=== PATIENT | female | born 1945 | race Caucasian/White ===

== ENCOUNTER 2020-09-18 12:16 | Outpatient (CLI) | payer MEDICARE ==
[2020-09-18] MEDS ORDERED: ZINC50CA PO (13:01)
[2020-09-18] MEDS ORDERED: ACET-1600 PO (13:01)
[2020-09-18] MEDS ORDERED: GABA300C PO (13:01)
[2020-09-18] MEDS ORDERED: vitamin d PO (13:01)
[2020-09-18] MEDS ORDERED: ASCO500T8 PO (13:01)
[2020-09-18] MEDS ORDERED: SLOW FE PO (13:01)
[2020-09-18 13:31] LABS: BASOPHILS % (AUTO) 1 % (0-1); EOSINOPHILS % (AUTO) 3 % (1-7); LYMPHOCYTES % (AUTO) 31 % (22-44); MEAN CORPUSCULAR HEMOGLOBIN 27.3 pg (27.0-34.8); MEAN CORPUSCULAR HGB CONC 32.2 g/dL (32.4-35.8); MONOCYTES % (AUTO) 8 % (2-9); NEUTROPHILS % (AUTO) 56 % (42-75); PLATELET COUNT 303 x10^3/uL (130-400); RED BLOOD COUNT 4.85 x10^6/uL (3.82-5.3); RED CELL DISTRIBUTION WIDTH 17.9 % (9.6-15.2)
[2020-09-18 13:32] LABS: MD NO
[2020-09-18 13:42] LABS: ALANINE AMINOTRANSFERASE 24 U/L (12-78); ALBUMIN 4.1 g/dL (3.4-5.0); ANION GAP 5 mmol/L (5-15); CHLORIDE 107 mmol/L (98-107); CREATININE 0.99 mg/dL (0.55-1.02)
[2020-09-18 13:44] LABS: ALKALINE PHOSPHATASE 105 U/L (45-117); BILIRUBIN,TOTAL 0.3 mg/dL (0.2-1.0); TOTAL PROTEIN 8.2 g/dL (6.4-8.2)
[2020-09-18 13:47] LABS: MICROSCOPIC AUTO
[2020-09-18 14:08] LABS: PROTHROMBIN TIME 10.6 Seconds (9.6-11.5)
== END 2020-09-18 23:59 | disposition home or self-care (01) ==
LOC: STAR 12:16
PROVIDERS: ATTEND Urology
DX: Z01.812 Encounter for preprocedural laboratory examination (principal); Z20.828 Contact with and (suspected) exposure to other viral communicable diseases; N28.89 Other specified disorders of kidney and ureter
CPT/HCPCS: 80053; 81001; 85025; 85610; 87086; 87635; 93005